=== PATIENT | male | born 1985 | race Caucasian/White ===

== ENCOUNTER 2020-03-27 21:30 | Emergency (ER) | payer BC ==
[2020-03-27] MEDS ORDERED: ACETAMINOPHEN 500 MG TABLET (FP) PO ONE (21:35)
--- NOTE | 2020-03-27 21:35 | PDOC ---
Rapid Medical Evaluation Time Seen by Provider: 03/27/20 21:32 Medical Evaluation: 03/27/20 21:33 I have performed a brief in-person evaluation of this patient. CC: "jolting" pain to left jaw radiating to left ear and left neck. PE: Multiple obvious dental caries present. No lympadenopathy Orders: tylenol Patient will proceed to ED for further evaluation. Discharge Disposition - Diagnosis Toothache - Referrals - Patient Instructions - Post Discharge Activity
[2020-03-27 21:36] VITALS: TEMP 98.5; BMI 41.1
--- NOTE | 2020-03-27 22:03 | PDOC ---
History of Present Illness - General Chief Complaint: Pain, Acute Stated Complaint: PAIN Time Seen by Provider: 03/27/20 21:32 - History of Present Illness Initial Comments: 03/27/20 22:01 34-year-old male no comorbidities presents for toothache which started abruptly this evening. Past History - Medical History Home Medications: Ambulatory Orders Amoxicillin - [Amoxicillin 500mg Capsule -] 500 mg PO TID #21 capsule 03/27/20 COPD: No - Psycho-Social/Smoking History Smoking History: Current every day smoker Number of Cigarettes Smoked Daily: 12 Information on smoking cessation initiated: No - Substance Abuse Hx (Audit-C & DAST Scrn) How often the patient has a drink containing alcohol: Never Score: In Men: 4 or > Positive; In Women: 3 or > Positive: 0 Screen Result (Pos requires Nsg. Audit-10AR): Negative In the last yr the pt used illegal drug/Rx for NonMed reason: No Score: Yes response is considered Positive: 0 Screen Result (Positive result requires Nsg. DAST-10): Negative Review of Systems - Review of Systems Constitutional: No: Fever HEENTM: Yes: Mouth Pain, Dental Problems *Physical Exam - Vital Signs Last Vital Signs Temp Pulse Resp BP Pulse Ox 98.5 F 107 H 19 150/90 99 03/27/20 21:34 03/27/20 21:34 03/27/20 21:34 03/27/20 21:34 03/27/20 21:34 - Physical Exam General Appearance: Yes: Nourished, Appropriately Dressed. No: Apparent Distress HEENT: positive: Normal ENT Inspection, Normal Voice, Symmetrical, TMs Normal, Pharynx Normal, Other (Multiple dental caries no areas of fluctuance or erythema) Medical Decision Making - Medical Decision Making 03/27/20 22:01 Follow-up with urgent care dental amoxicillin Percocet emergency room for pain. My patient understanding Discharge - Discharge Information Problems reviewed: Yes Clinical Impression/Diagnosis: Toothache Condition: Stable Disposition: HOME - Admission No - Additional Discharge Information Prescriptions: Amoxicillin - [Amoxicillin 500mg Capsule -] 500 mg PO TID #21 capsule - Follow up/Referral Referrals: Torito Bearden MD [Primary Care Provider] - [facility] [[facility]] - Patient Discharge Instructions Additional Instructions: Return to the emergency room for further issues. Please take the antibiotics as directed. Tylenol Motrin as directed for pain. Start Tylenol tomorrow as you were given a dose of Tylenol in the emergency room along with narcotic pain medication. Return to the emergency room for worsening symptoms without fail follow-up with urgent care dental in 1 to 2 days for further evaluation and treatment options. - Post Discharge Activity
[2020-03-27] MEDS ORDERED: ACETAMINOPHEN 500 MG TABLET (FP) ONE (22:13)
[2020-03-27 22:26] VITALS: BP 137/82; PULSE 86
== END 2020-03-27 22:37 | disposition home or self-care (01) ==
LOC: JER 21:30
DX: K08.89 Other specified disorders of teeth and supporting structures (principal)
CPT/HCPCS: 99283-25